=== PATIENT | female | born 1965 | race Caucasian/White ===

== ENCOUNTER 2017-03-03 14:59 | Emergency (ER) | payer OTHER ==
[~2017-03-03] VITALS: Ht 162.5 cm; Wt 127.0 kg
[2017-03-03] MEDS ORDERED: KETOROLAC10 MG PO (15:26)
[2017-03-03 16:02] LABS: BASO % 0.3 % (0.0-1.0); EOS # 0.7 10*3/uL (0.0-0.4); EOS % 6.4 % (1.0-4.0); HEMOGLOBIN 12.9 g/dl (12.0-16.0); LYMPH # 2.4 10*3/uL (1.3-4.4); MEAN CELL VOLUME 91.6 fl (81.0-99.0); MEAN CORPUSCULAR HGB 31.1 pg (27.0-31.0); MEAN CORPUSCULAR HGB CONC 33.9 g/dl (33.0-37.0); MEAN PLATELET VOLUME 8.8 fl (9.6-12.3); MONO # 0.7 10*3/uL (0.1-1.0); MONO % 6.2 % (3.0-9.0); NEUT # 7.4 10*3/uL (2.3-7.9); NEUT % 65.8 % (47.0-73.0); PLATELET COUNT AUTOMATED 331 10*3/uL (130-400); RED BLOOD COUNT 4.15 10*6/uL (4.10-5.10); RED CELL DISTRI WIDTH 13.8 % (0-14.5); WHITE BLOOD COUNT 11.3 10*3/uL (4.8-10.8)
[2017-03-03 16:17] LABS: ALBUMIN 3.4 gm/dl (3.1-4.5); ALKALINE PHOSPHATASE 161 U/L (45-117); BUN 10 mg/dl (7-24); CHLORIDE 102 mmol/L (98-107); CREATININE 0.81 mg/dL (0.55-1.02); POTASSIUM 3.8 mmol/L (3.5-5.1); SGOT/AST 9 IU/L (3-35); SGPT/ALT 22 U/L (12-78); SODIUM 139 mmol/L (136-145); TOTAL PROTEIN 7.3 gm/dL (6.4-8.2)
[2017-03-03] MEDS ORDERED: NORCO 5-325 TA1 EACH PO (16:54)
[2017-03-03] MEDS ORDERED: CLINDAMYCIN HC300 MG PO (16:54)
== END 2017-03-03 16:58 | disposition home or self-care (01) ==
LOC: ED 14:59
PROVIDERS: Physician Assistant
DX: L08.9 Local infection of the skin and subcutaneous tissue, unspecified (principal); R21 Rash and other nonspecific skin eruption; F17.200 Nicotine dependence, unspecified, uncomplicated; Z88.1 Allergy status to other antibiotic agents; Z88.8 Allergy status to other drugs, medicaments and biological substances

== ENCOUNTER 2017-03-13 12:37 | Inpatient (IN) | payer OTHER ==
[~2017-03-13] VITALS: Ht 160 cm; Wt 127.0 kg
[~2017-03-13 12:37] MED LIST: CLINDAMYCIN HC300 MG PO; KETOROLAC10 MG PO; NORCO 5-325 TA1 EACH PO
[2017-03-13 12:45] VITALS: BP 124/76
[2017-03-13 13:32] LABS: BASO # 0.1 10*3/uL (0.0-0.1); BASO % 0.4 % (0.0-1.0); EOS # 0.9 10*3/uL (0.0-0.4); EOS % 6.5 % (1.0-4.0); HEMATOCRIT 46.1 % (37.0-47.0); HEMOGLOBIN 15.6 g/dl (12.0-16.0); LYMPH # 2.3 10*3/uL (1.3-4.4); LYMPH % 15.5 % (27.0-41.0); MEAN CELL VOLUME 92.6 fl (81.0-99.0); MEAN CORPUSCULAR HGB 31.3 pg (27.0-31.0); MEAN CORPUSCULAR HGB CONC 33.8 g/dl (33.0-37.0); MEAN PLATELET VOLUME 8.7 fl (9.6-12.3); NEUT # 10.2 10*3/uL (2.3-7.9); NEUT % 70.3 % (47.0-73.0); PLATELET COUNT AUTOMATED 342 10*3/uL (130-400); RED BLOOD COUNT 4.98 10*6/uL (4.10-5.10); RED CELL DISTRI WIDTH 13.8 % (0-14.5); WHITE BLOOD COUNT 14.6 10*3/uL (4.8-10.8)
[2017-03-13 13:48] LABS: ALBUMIN 3.7 gm/dl (3.1-4.5); ALKALINE PHOSPHATASE 179 U/L (45-117); BUN 10 mg/dl (7-24); CHLORIDE 101 mmol/L (98-107); CREATININE 0.91 mg/dL (0.55-1.02); LIPASE 77 U/L (73-393); POTASSIUM 4.2 mmol/L (3.5-5.1); SGOT/AST 7 IU/L (3-35); SGPT/ALT 17 U/L (12-78); SODIUM 136 mmol/L (136-145)
[2017-03-13 13:49] LABS: TROPONIN I < 0.015 ng/ml (<0.045)
[2017-03-13 13:50] LABS: BILIRUBIN NEGATIVE (NEGATIVE); BLOOD TRACE-INTACT (NEGATIVE); CLARITY CLOUDY (CLEAR); COLOR YELLOW (YELLOW); GLUCOSE NEGATIVE (NEGATIVE); KETONE NEGATIVE (NEGATIVE); LEUKO ESTERASE 2+ (NEGATIVE); NITRITE NEGATIVE (NEGATIVE); PH 6.5 (5.0-9.0); UROBILINOGEN 0.2 E.U./dl (0.2-1.0)
[2017-03-13 14:00] LABS: BACTERIA 2+; RBC 0-2 rbc/hpf (0-2); WBC TNTC wbc/hpf (0-5)
[2017-03-13 14:33] VITALS: BP 135/96
[2017-03-13] MEDS ORDERED: NEXIUM40 MG PO (14:54)
[2017-03-13] MEDS ORDERED: XANAX0.5 MG PO (14:54)
[2017-03-13] MEDS ORDERED: BUMETANIDE0.5 MG PO (14:56)
[2017-03-13] MEDS ORDERED: EFFER-K10 MEQ PO (14:57)
[2017-03-13] MEDS ORDERED: DILANTIN100 MG PO (14:58)
[2017-03-13] MEDS ORDERED: AMITRIPTYLINE50 MG PO (14:59)
[2017-03-13] MEDS ORDERED: ZESTRIL20 MG PO (15:00)
[2017-03-13] MEDS ORDERED: SPIRIVA -- 3018 MCG INH (15:00)
[2017-03-13] MEDS ORDERED: RESTORIL30 M1 PO (15:02)
[2017-03-13] MEDS ORDERED: FIORINAL W/CODE1 TAB PO (15:02)
[2017-03-13] MEDS ORDERED: CYCLOBENZAPRINE10 MG PO (15:05)
[2017-03-13] MEDS ORDERED: AMITIZA24 MCG PO (15:06)
[2017-03-13 16:00] VITALS: BP 136/71
[2017-03-13 20:00] VITALS: BP 114/68
[2017-03-14] VITALS: BP 107/66
[2017-03-14 07:23] LABS: BASO % 0.3 % (0.0-1.0); EOS # 0.1 10*3/uL (0.0-0.4); EOS % 0.7 % (1.0-4.0); HEMATOCRIT 43.1 % (37.0-47.0); HEMOGLOBIN 14.2 g/dl (12.0-16.0); LYMPH # 0.9 10*3/uL (1.3-4.4); LYMPH % 7.6 % (27.0-41.0); MEAN CELL VOLUME 93.5 fl (81.0-99.0); MEAN CORPUSCULAR HGB 30.8 pg (27.0-31.0); MEAN CORPUSCULAR HGB CONC 32.9 g/dl (33.0-37.0); MEAN PLATELET VOLUME 9.1 fl (9.6-12.3); MONO # 0.1 10*3/uL (0.1-1.0); MONO % 1.1 % (3.0-9.0); NEUT % 89.8 % (47.0-73.0); NUCLEATED RED BLOOD CELL 0.2 % (0.0-0.0); PLATELET COUNT AUTOMATED 333 10*3/uL (130-400); RED BLOOD COUNT 4.61 10*6/uL (4.10-5.10); RED CELL DISTRI WIDTH 13.7 % (0-14.5); WHITE BLOOD COUNT 12.3 10*3/uL (4.8-10.8)
[2017-03-14 07:52] LABS: BUN 10 mg/dl (7-24); CHLORIDE 102 mmol/L (98-107); CHOLESTEROL 186 mg/dL (<200); CREATININE 0.91 mg/dL (0.55-1.02); POTASSIUM 4.3 mmol/L (3.5-5.1); SODIUM 136 mmol/L (136-145); TRIGLYCERIDES 103 mg/dl (<150); VLDL CHOLESTEROL 21 mg/dL (6-40)
[2017-03-14 08:00] VITALS: BP 128/77
[2017-03-14 08:03] LABS: FREE T4 0.93 ng/dl (0.76-1.46); HDL CHOLESTEROL 47 mg/dl (40-60); LDL CHOLESTEROL 118 mg/dL (9-159)
[2017-03-14 12:00] VITALS: BP 123/47
[2017-03-14 16:00] VITALS: BP 133/80
[2017-03-14 20:00] VITALS: BP 122/66
[2017-03-15] VITALS: BP 108/91
[2017-03-15 07:17] LABS: BASO # 0.1 10*3/uL (0.0-0.1); BASO % 0.5 % (0.0-1.0); EOS # 0.6 10*3/uL (0.0-0.4); EOS % 5.1 % (1.0-4.0); HEMATOCRIT 39.2 % (37.0-47.0); LYMPH # 2.7 10*3/uL (1.3-4.4); LYMPH % 24.3 % (27.0-41.0); MEAN CELL VOLUME 94.2 fl (81.0-99.0); MEAN CORPUSCULAR HGB 31.3 pg (27.0-31.0); MEAN CORPUSCULAR HGB CONC 33.2 g/dl (33.0-37.0); MEAN PLATELET VOLUME 8.8 fl (9.6-12.3); MONO # 0.9 10*3/uL (0.1-1.0); MONO % 7.7 % (3.0-9.0); NEUT # 6.8 10*3/uL (2.3-7.9); NEUT % 61.9 % (47.0-73.0); PLATELET COUNT AUTOMATED 310 10*3/uL (130-400); RED BLOOD COUNT 4.16 10*6/uL (4.10-5.10); RED CELL DISTRI WIDTH 13.7 % (0-14.5)
[2017-03-15 07:43] LABS: CHLORIDE 102 mmol/L (98-107); POTASSIUM 3.7 mmol/L (3.5-5.1); SODIUM 138 mmol/L (136-145)
[2017-03-15 07:47] LABS: BUN 9 mg/dl (7-24); PHOSPHOROUS 3.7 mg/dL (2.5-4.9)
[2017-03-15 08:00] VITALS: BP 122/72
[2017-03-15] MEDS ORDERED: VITAMIN D-32000 UNIT PO (11:04)
[2017-03-15] MEDS ORDERED: SEPTDS PO (11:04)
[2017-03-15] MEDS ORDERED: NATURE'S BLEND F1 MG PO (11:04)
[2017-03-15] MEDS ORDERED: KEFLEX500 M1 PO (11:04)
[2017-03-15] MEDS ORDERED: PERCOCET 5-3251 EACH PO (11:05)
== END 2017-03-15 12:13 | disposition home or self-care (01) | DRG 872 ==
LOC: ED 12:37 → EDHOLD 14:28 → 4E 14:32
PROVIDERS: Internal Medicine Nephrology; Student in an Organized Health Care Education/Training Program
DX: A41.9 Sepsis, unspecified organism (principal); I11.0 Hypertensive heart disease with heart failure; I50.9 Heart failure, unspecified; E66.01 Morbid (severe) obesity due to excess calories; N39.0 Urinary tract infection, site not specified; Z68.42 Body mass index [BMI] 45.0-49.9, adult; E78.5 Hyperlipidemia, unspecified; J44.9 Chronic obstructive pulmonary disease, unspecified; R82.71 Bacteriuria; D72.810 Lymphocytopenia; N61.0 Mastitis without abscess; F17.200 Nicotine dependence, unspecified, uncomplicated; K58.1 Irritable bowel syndrome with constipation; G40.909 Epilepsy, unspecified, not intractable, without status epilepticus; K21.9 Gastro-esophageal reflux disease without esophagitis; Z90.710 Acquired absence of both cervix and uterus; Z82.49 Family history of ischemic heart disease and other diseases of the circulatory system; Z88.8 Allergy status to other drugs, medicaments and biological substances; Z79.82 Long term (current) use of aspirin; Z79.899 Other long term (current) drug therapy; Z80.8 Family history of malignant neoplasm of other organs or systems; Z71.6 Tobacco abuse counseling

== ENCOUNTER → 2017-04-20 | Outpatient (CLI) | payer OTHER ==
[~2017-04-20] MED LIST changes: +AMITIZA24 MCG PO; +AMITRIPTYLINE50 MG PO; +BUMETANIDE0.5 MG PO; +CYCLOBENZAPRINE10 MG PO; +DILANTIN100 MG PO; +EFFER-K10 MEQ PO; +FIORINAL W/CODE1 TAB PO; +KEFLEX500 M1 PO; +NATURE'S BLEND F1 MG PO; +NEXIUM40 MG PO; +PERCOCET 5-3251 EACH PO; +RESTORIL30 M1 PO; +SEPTDS PO; +SPIRIVA -- 3018 MCG INH; +VITAMIN D-32000 UNIT PO; +XANAX0.5 MG PO; +ZESTRIL20 MG PO
== END | disposition home or self-care (01) ==
LOC: RESCLI 02:11
DX: I11.0 Hypertensive heart disease with heart failure (principal); I50.42 Chronic combined systolic (congestive) and diastolic (congestive) heart failure; J44.9 Chronic obstructive pulmonary disease, unspecified; G89.28 Other chronic postprocedural pain; G47.30 Sleep apnea, unspecified; E66.9 Obesity, unspecified; K21.9 Gastro-esophageal reflux disease without esophagitis; K44.9 Diaphragmatic hernia without obstruction or gangrene; K58.1 Irritable bowel syndrome with constipation; R56.9 Unspecified convulsions; G44.229 Chronic tension-type headache, not intractable; F32.9 Major depressive disorder, single episode, unspecified; F41.9 Anxiety disorder, unspecified; E78.2 Mixed hyperlipidemia

== ENCOUNTER → 2017-04-29 | Outpatient (CLI) | payer OTHER ==
[2017-04-29 10:13] LABS: HEMATOCRIT 38.5 % (37.0-47.0); HEMOGLOBIN 12.8 g/dl (12.0-16.0); MEAN CELL VOLUME 92.5 fl (81.0-99.0); MEAN CORPUSCULAR HGB 30.8 pg (27.0-31.0); MEAN CORPUSCULAR HGB CONC 33.2 g/dl (33.0-37.0); RED BLOOD COUNT 4.16 10*6/uL (4.10-5.10); RED CELL DISTRI WIDTH 13.2 % (0-14.5); WHITE BLOOD COUNT 14.3 10*3/uL (4.8-10.8)
[2017-04-29 10:34] LABS: ALBUMIN 3.7 gm/dl (3.1-4.5); BUN 11 mg/dl (7-24); CHLORIDE 94 mmol/L (98-107); POTASSIUM 4.1 mmol/L (3.5-5.1); SODIUM 131 mmol/L (136-145)
[2017-04-29 10:38] LABS: ALKALINE PHOSPHATASE 151 U/L (45-117); CREATININE 0.99 mg/dL (0.55-1.02); SGOT/AST 8 IU/L (3-35); SGPT/ALT 18 U/L (12-78); TOTAL PROTEIN 7.6 gm/dL (6.4-8.2)
== END | disposition home or self-care (01) ==
LOC: LAB 08:25 → MAMMO 09:00
PROVIDERS: Internal Medicine
DX: R92.8 Other abnormal and inconclusive findings on diagnostic imaging of breast (principal); N39.0 Urinary tract infection, site not specified; G89.28 Other chronic postprocedural pain

== ENCOUNTER → 2017-05-04 | Outpatient (CLI) | payer OTHER | END | disposition home or self-care (01) | LOC: RESCLI 10:45 | DX: J44.9 Chronic obstructive pulmonary disease, unspecified (principal); G47.30 Sleep apnea, unspecified; E66.9 Obesity, unspecified; K21.9 Gastro-esophageal reflux disease without esophagitis; I10 Essential (primary) hypertension; G44.229 Chronic tension-type headache, not intractable; E78.2 Mixed hyperlipidemia; G89.28 Other chronic postprocedural pain ==

== ENCOUNTER → 2017-05-07 | Outpatient (CLI) | payer OTHER | END | disposition home or self-care (01) | LOC: CARD 00:38 | DX: I50.40 Unspecified combined systolic (congestive) and diastolic (congestive) heart failure (principal); G89.28 Other chronic postprocedural pain ==

== ENCOUNTER → 2017-06-02 | Outpatient (CLI) | payer OTHER | END | disposition home or self-care (01) | LOC: RESCLI 01:37 | DX: J44.9 Chronic obstructive pulmonary disease, unspecified (principal); G47.30 Sleep apnea, unspecified; E66.9 Obesity, unspecified; K21.9 Gastro-esophageal reflux disease without esophagitis; R56.9 Unspecified convulsions; G44.229 Chronic tension-type headache, not intractable; F32.9 Major depressive disorder, single episode, unspecified; F41.9 Anxiety disorder, unspecified; I11.0 Hypertensive heart disease with heart failure; I50.42 Chronic combined systolic (congestive) and diastolic (congestive) heart failure; E78.2 Mixed hyperlipidemia; R10.2 Pelvic and perineal pain; G89.29 Other chronic pain ==

== ENCOUNTER → 2017-06-30 | Outpatient (CLI) | payer OTHER | END | disposition home or self-care (01) | LOC: RESCLI 02:05 | DX: J44.9 Chronic obstructive pulmonary disease, unspecified (principal); G47.30 Sleep apnea, unspecified; E66.9 Obesity, unspecified; K21.9 Gastro-esophageal reflux disease without esophagitis; K58.1 Irritable bowel syndrome with constipation; R56.9 Unspecified convulsions; G56.03 Carpal tunnel syndrome, bilateral upper limbs; G89.29 Other chronic pain; E78.2 Mixed hyperlipidemia; I11.0 Hypertensive heart disease with heart failure; I50.42 Chronic combined systolic (congestive) and diastolic (congestive) heart failure; F41.9 Anxiety disorder, unspecified; F32.9 Major depressive disorder, single episode, unspecified ==

== ENCOUNTER 2017-07-28 13:33 | Inpatient (IN) | payer OTHER ==
[~2017-07-28] VITALS: Ht 162.6 cm; Wt 151.1 kg
[2017-07-28] VITALS (7 sets, daily range): BP systolic 108–143; BP diastolic 55–78
[2017-07-28 14:49] LABS: BASO % 0.2 % (0.0-1.0); EOS # 0.6 10*3/uL (0.0-0.4); EOS % 4.4 % (1.0-4.0); HEMATOCRIT 37.1 % (37.0-47.0); HEMOGLOBIN 12.4 g/dl (12.0-16.0); LYMPH # 1.9 10*3/uL (1.3-4.4); LYMPH % 13.6 % (27.0-41.0); MEAN CELL VOLUME 89.8 fl (81.0-99.0); MEAN CORPUSCULAR HGB CONC 33.4 g/dl (33.0-37.0); MEAN PLATELET VOLUME 8.3 fl (9.6-12.3); MONO # 0.8 10*3/uL (0.1-1.0); MONO % 5.8 % (3.0-9.0); NEUT # 10.7 10*3/uL (2.3-7.9); NEUT % 75.6 % (47.0-73.0); PLATELET COUNT AUTOMATED 335 10*3/uL (130-400); RED BLOOD COUNT 4.13 10*6/uL (4.10-5.10); RED CELL DISTRI WIDTH 14.1 % (0-14.5); WHITE BLOOD COUNT 14.2 10*3/uL (4.8-10.8)
[2017-07-28 14:58] LABS: ACT PARTIAL THROMBO TIME 24.2 SECONDS (20.8-31.5)
[2017-07-28 15:04] LABS: ALBUMIN 3.4 gm/dl (3.1-4.5); ALKALINE PHOSPHATASE 177 U/L (45-117); BUN 11 mg/dl (7-24); CHLORIDE 92 mmol/L (98-107); LIPASE 39 U/L (73-393); POTASSIUM 4.2 mmol/L (3.5-5.1); SGOT/AST 12 IU/L (3-35); SGPT/ALT 23 U/L (12-78); SODIUM 127 mmol/L (136-145); TOTAL PROTEIN 7.5 gm/dL (6.4-8.2)
[2017-07-28 15:08] LABS: TROPONIN I < 0.015 ng/ml (<0.045)
[2017-07-28] MEDS ORDERED: ASPIRIN81 M1 PO (15:15)
[2017-07-28] MEDS ORDERED: FLONASE ALLERG9.9 ML NAS (15:16)
[2017-07-28] MEDS ORDERED: PROAIR HFA8.5 GM INH (15:17)
[2017-07-28] MEDS ORDERED: OXYGEN NAS (15:17)
[2017-07-28] MEDS ORDERED: MAGNESIUM500 MG PO (15:18)
[2017-07-28 15:25] LABS: BILIRUBIN NEGATIVE (NEGATIVE); BLOOD TRACE-LYSED (NEGATIVE); CLARITY SL CLOUDY (CLEAR); COLOR YELLOW (YELLOW); GLUCOSE NEGATIVE (NEGATIVE); KETONE NEGATIVE (NEGATIVE); LEUKO ESTERASE 2+ (NEGATIVE); NITRITE POSITIVE (NEGATIVE); PH 5.5 (5.0-9.0); UROBILINOGEN 0.2 E.U./dl (0.2-1.0)
[2017-07-28 15:41] LABS: BACTERIA 4+
[2017-07-28 15:42] LABS: EPITHELIAL CELLS 21-30
[2017-07-28 15:43] LABS: WBC 51-100 wbc/hpf (0-5)
[2017-07-28] MEDS ORDERED: QVAR8.7 G1 INH (18:17)
[2017-07-28] MEDS ORDERED: COMPAZINE R (18:18)
[2017-07-29] VITALS: BP 124/75
[2017-07-29 06:32] LABS: BASO % 0.1 % (0.0-1.0); EOS # 0.2 10*3/uL (0.0-0.4); EOS % 1.5 % (1.0-4.0); HEMATOCRIT 36.5 % (37.0-47.0); HEMOGLOBIN 11.5 g/dl (12.0-16.0); LYMPH # 1.1 10*3/uL (1.3-4.4); LYMPH % 8.5 % (27.0-41.0); MEAN CELL VOLUME 91.9 fl (81.0-99.0); MEAN CORPUSCULAR HGB CONC 31.5 g/dl (33.0-37.0); MEAN PLATELET VOLUME 8.6 fl (9.6-12.3); MONO # 0.5 10*3/uL (0.1-1.0); MONO % 3.4 % (3.0-9.0); NEUT # 11.5 10*3/uL (2.3-7.9); NEUT % 85.8 % (47.0-73.0); PLATELET COUNT AUTOMATED 334 10*3/uL (130-400); RED BLOOD COUNT 3.97 10*6/uL (4.10-5.10); WHITE BLOOD COUNT 13.4 10*3/uL (4.8-10.8)
[2017-07-29 06:50] LABS: BUN 10 mg/dl (7-24); CHLORIDE 94 mmol/L (98-107); CHOLESTEROL 186 mg/dL (<200); CREATININE 0.89 mg/dL (0.55-1.02); HDL CHOLESTEROL 51 mg/dl (40-60); LDL CHOLESTEROL 120 mg/dL (9-159); POTASSIUM 4.5 mmol/L (3.5-5.1); SODIUM 130 mmol/L (136-145); TRIGLYCERIDES 73 mg/dl (<150); VLDL CHOLESTEROL 15 mg/dL (6-40)
[2017-07-29 07:42] LABS: VITAMIN D, 25-HYDROXY 18.4 ng/mL (30-100)
[2017-07-29 08:00] VITALS: BP 127/82
[2017-07-29 12:00] VITALS: BP 124/78
[2017-07-29 16:00] VITALS: BP 106/69
[2017-07-29 20:00] VITALS: BP 139/45
[2017-07-29] MEDS ORDERED: POTASSIUM CHLO10 ME5 PO (23:09)
[2017-07-29] MEDS ORDERED: BUMETANIDE0.5 MG PO (23:13)
[2017-07-29] MEDS ORDERED: ESGIC 325 MG-5050 MG PO (23:16)
[2017-07-30] VITALS: BP 107/49
[2017-07-30 06:14] LABS: BASO % 0.2 % (0.0-1.0); EOS # 0.1 10*3/uL (0.0-0.4); EOS % 0.9 % (1.0-4.0); HEMATOCRIT 40.2 % (37.0-47.0); HEMOGLOBIN 12.3 g/dl (12.0-16.0); LYMPH # 1.9 10*3/uL (1.3-4.4); LYMPH % 12.8 % (27.0-41.0); MEAN CORPUSCULAR HGB 29.1 pg (27.0-31.0); MEAN CORPUSCULAR HGB CONC 30.6 g/dl (33.0-37.0); MEAN PLATELET VOLUME 8.7 fl (9.6-12.3); MONO # 0.9 10*3/uL (0.1-1.0); MONO % 5.9 % (3.0-9.0); NEUT # 11.8 10*3/uL (2.3-7.9); NEUT % 79.5 % (47.0-73.0); PLATELET COUNT AUTOMATED 336 10*3/uL (130-400); RED BLOOD COUNT 4.23 10*6/uL (4.10-5.10); RED CELL DISTRI WIDTH 14.4 % (0-14.5); WHITE BLOOD COUNT 14.9 10*3/uL (4.8-10.8)
[2017-07-30 06:34] LABS: ALBUMIN 3.4 gm/dl (3.1-4.5); ALKALINE PHOSPHATASE 155 U/L (45-117); BUN 10 mg/dl (7-24); CHLORIDE 101 mmol/L (98-107); CREATININE 0.75 mg/dL (0.55-1.02); PHOSPHOROUS 3.1 mg/dL (2.5-4.9); POTASSIUM 4.4 mmol/L (3.5-5.1); SGOT/AST 10 IU/L (3-35); SGPT/ALT 20 U/L (12-78); SODIUM 137 mmol/L (136-145); TOTAL PROTEIN 7.4 gm/dL (6.4-8.2)
[2017-07-30 08:00] VITALS: BP 116/72
[2017-07-30 12:00] VITALS: BP 106/50
[2017-07-30] MEDS ORDERED: PREDNISONE10 MG PO (14:17)
[2017-07-30] MEDS ORDERED: LEVAQUIN750 M1 PO (14:17)
== END 2017-07-30 15:11 | disposition home or self-care (01) | DRG 871 ==
LOC: ED 13:33 → EDHOLD 16:56 → 4E 16:56
PROVIDERS: Internal Medicine; Nurse Practitioner Family
DX: A41.9 Sepsis, unspecified organism (principal); J18.9 Pneumonia, unspecified organism; E44.0 Moderate protein-calorie malnutrition; I11.0 Hypertensive heart disease with heart failure; E66.01 Morbid (severe) obesity due to excess calories; E87.8 Other disorders of electrolyte and fluid balance, not elsewhere classified; I50.9 Heart failure, unspecified; J44.1 Chronic obstructive pulmonary disease with (acute) exacerbation; E87.1 Hypo-osmolality and hyponatremia; N30.00 Acute cystitis without hematuria; Z68.43 Body mass index [BMI] 50.0-59.9, adult; E78.2 Mixed hyperlipidemia; B96.20 Unspecified Escherichia coli [E. coli] as the cause of diseases classified elsewhere; L73.2 Hidradenitis suppurativa; K21.9 Gastro-esophageal reflux disease without esophagitis; F17.200 Nicotine dependence, unspecified, uncomplicated; K58.9 Irritable bowel syndrome, unspecified; G40.909 Epilepsy, unspecified, not intractable, without status epilepticus; Z88.1 Allergy status to other antibiotic agents; Z88.0 Allergy status to penicillin; Z88.8 Allergy status to other drugs, medicaments and biological substances; Z79.82 Long term (current) use of aspirin; Z71.6 Tobacco abuse counseling; Z79.899 Other long term (current) drug therapy; Z87.440 Personal history of urinary (tract) infections; Z90.710 Acquired absence of both cervix and uterus; Z82.49 Family history of ischemic heart disease and other diseases of the circulatory system; Z80.6 Family history of leukemia

== ENCOUNTER → 2017-08-18 | Outpatient (CLI) | payer OTHER ==
[~2017-08-18] MED LIST changes: +ASPIRIN81 M1 PO; +COMPAZINE R; +ESGIC 325 MG-5050 MG PO; +FLONASE ALLERG9.9 ML NAS; +LEVAQUIN750 M1 PO; +MAGNESIUM500 MG PO; +OXYGEN NAS; +POTASSIUM CHLO10 ME5 PO; +PREDNISONE10 MG PO; +PROAIR HFA8.5 GM INH; +QVAR8.7 G1 INH; +REGLAN5 MG PO
== END | disposition home or self-care (01) ==
LOC: RESCLI 03:17
DX: I11.0 Hypertensive heart disease with heart failure (principal); I50.42 Chronic combined systolic (congestive) and diastolic (congestive) heart failure; J44.9 Chronic obstructive pulmonary disease, unspecified; G47.30 Sleep apnea, unspecified; K21.9 Gastro-esophageal reflux disease without esophagitis; R56.9 Unspecified convulsions; F32.9 Major depressive disorder, single episode, unspecified; E78.2 Mixed hyperlipidemia; G89.29 Other chronic pain; K58.1 Irritable bowel syndrome with constipation; F17.210 Nicotine dependence, cigarettes, uncomplicated; R11.0 Nausea; Z79.899 Other long term (current) drug therapy; Z90.49 Acquired absence of other specified parts of digestive tract; Z88.8 Allergy status to other drugs, medicaments and biological substances

== ENCOUNTER → 2017-09-23 | Day surgery (SDC) | payer OTHER ==
[~2017-09-23] VITALS: Ht 162.5 cm; Wt 136.1 kg
--- NOTE | ~2017-09-23 | O ---
[place], [place] OPERATIVE NOTE NAME: MELECIO QUESADA UNIT #: [id number] ROOM: DOCTOR: RENE FITZPATRICK,STEPHY BIRTHDATE: [birth year] DOS: 09/23/2017 GASTROENDOSCOPIC REPORT HISTORY OF PRESENT ILLNESS: This is a 52-year-old patient who has presented with chief complaint of gastroesophageal dyspepsia on Nexium 40 mg b.i.d., reflux symptoms ____ symptomatology of GI, change in bowel habit, diarrhea, constipation, dominant CT scan of the abdomen and pelvis, multiple gallstones, otherwise question of abnormal LFTs, has been n.p.o. in presence of gallstones and bibasilar atelectasis of the lung, advanced COPD, active smoker, however. ALLERGIES: CECLOR, PENICILLIN, NEURONTIN, DEPAKOTE. PAST MEDICAL HISTORY: Seizure disorder, COPD, congestive heart failure, morbid obesity, oxygen dependency. FAMILY HISTORY: Noncontributory. PAST SURGICAL HISTORY: Hysterectomy, multi abdominal and pelvic surgeries, bladder sling, lower back surgery. SOCIAL HISTORY: Active smoker, nonalcohol consumer. PROCEDURE: Today's procedure part of investigation is panendoscopy plus colonoscopy. PREMEDICATION: Propofol. SCOPE: Olympus forward-viewing gastroscope Q10 video. REPORT: After putting the patient in left lateral position and application of lubricant to the scope, the scope was introduced. Thereafter, under direct visualization, advanced through the length of esophagus without difficulty. Gastric pouch was entered. Evidence of thick bowel by retained tablets in the stomach was noticed. Antral biopsy obtained. Duodenal bulb, second and third part within normal limit. The patient was gradually extubated, tolerated the procedure well. IMPRESSION: Bile reflux gastritis, multiple retained tablets. PLAN AND DISCUSSION: I have to start this patient on Reglan 5 mg before dinners and antireflux measures and continuation of the same medications until we reassess the patient again. The patient has presented with a chief complaint of diarrhea, change in bowel habit, and constipation, undergoing investigation. PROCEDURE: Today's procedure part of investigation is colonoscopy plus snare [place], [place] OPERATIVE NOTE NAME: MELECIO QUESADA UNIT #: [id number] ROOM: DOCTOR: [facility] [birth year] polypectomy of a rectal pouch polyp. PREMEDICATION: Propofol. SCOPE: Olympus forward-viewing colonoscope 10L video. REPORT: After putting the patient in left lateral position and application of lubricant to the scope, the scope was introduced. Thereafter, under direct visualization, advanced through the length of colon without difficulty. Retained stool throughout the length of colon was identified. Visualization was very limited; however, diverticulosis was noticed and a sessile polypoid lesion in rectal pouch identified, snare polypectomized. We could not be explore the base of cecum at all. Photographic series obtained from retained large volume of liquid stool. The patient extubated, tolerated the procedure well. IMPRESSION: Retained stool, rectal pouch polyp, diverticulosis, poor visualization due to retention of stool, and nonvisualization of hepatic and transverse colon partially. PLAN AND DISCUSSION: I will discuss with the patient to see if she would be amenable to re-prepping and re-colonoscopy; otherwise, conservative management. The patient was advised to abstain from smoking in view of the extreme shortness of breath and compromised breathing. However, I doubt she is going to be compliant. I am going to offer her a barium enema. I doubt if she is going to be compliant; however, workup in progress as outpatient. STEPHY LÓPEZ MD CM:OPRECORD:OPERATIVE NOTE [id number] STEPHY LÓPEZ MD 09/23/17 1338 interface
[2017-09-23 08:35] VITALS: BP 113/61
[2017-09-23 09:41] VITALS: BP 127/64
[2017-09-23 09:56] VITALS: BP 161/90
[2017-09-23 10:11] VITALS: BP 138/83
== END | disposition home or self-care (01) ==
LOC: SDC 09-18 09:30
DX: K62.1 Rectal polyp (principal); K58.1 Irritable bowel syndrome with constipation; K57.30 Diverticulosis of large intestine without perforation or abscess without bleeding; K29.50 Unspecified chronic gastritis without bleeding; K21.9 Gastro-esophageal reflux disease without esophagitis; J44.9 Chronic obstructive pulmonary disease, unspecified; I50.9 Heart failure, unspecified; G40.909 Epilepsy, unspecified, not intractable, without status epilepticus; G47.30 Sleep apnea, unspecified; G89.29 Other chronic pain; F17.210 Nicotine dependence, cigarettes, uncomplicated; M19.90 Unspecified osteoarthritis, unspecified site; E66.01 Morbid (severe) obesity due to excess calories; Z68.43 Body mass index [BMI] 50.0-59.9, adult; Z88.1 Allergy status to other antibiotic agents; Z88.0 Allergy status to penicillin; Z88.8 Allergy status to other drugs, medicaments and biological substances; Z90.710 Acquired absence of both cervix and uterus

== ENCOUNTER → 2017-10-30 | Outpatient (CLI) | payer OTHER ==
[~2017-10-30] MED LIST changes: +ALDACTONE25 M1 PO; +CIPRO500 MG PO; +FLAGYL500 MG PO; +MIRALAX POWDER255 G1 PO; +VALIUM10 MG V
== END | disposition home or self-care (01) ==
LOC: RESCLI 02:56
DX: Z09 Encounter for follow-up examination after completed treatment for conditions other than malignant neoplasm (principal); I11.0 Hypertensive heart disease with heart failure; I50.42 Chronic combined systolic (congestive) and diastolic (congestive) heart failure; G89.29 Other chronic pain; E78.2 Mixed hyperlipidemia; K21.9 Gastro-esophageal reflux disease without esophagitis; J44.9 Chronic obstructive pulmonary disease, unspecified; G47.30 Sleep apnea, unspecified; F32.9 Major depressive disorder, single episode, unspecified; E66.9 Obesity, unspecified; R56.9 Unspecified convulsions; E78.5 Hyperlipidemia, unspecified; F17.200 Nicotine dependence, unspecified, uncomplicated; K58.1 Irritable bowel syndrome with constipation; F41.9 Anxiety disorder, unspecified; Z91.89 Other specified personal risk factors, not elsewhere classified; Z79.899 Other long term (current) drug therapy; Z79.82 Long term (current) use of aspirin; Z88.8 Allergy status to other drugs, medicaments and biological substances

== ENCOUNTER 2017-12-01 14:47 | Inpatient (IN) | payer OTHER ==
[~2017-12-01] VITALS: Ht 162.6 cm; Wt 148.4 kg
--- NOTE | ~2017-12-01 | EKG ---
[place], [place] ELECTROCARDIOGRAM REPORT NAME: MELECIO QUESADA UNIT #: [id number] ROOM: [facility] DOCTOR: CURT DRAFT REPORT BIRTHDATE: [birth year] [facility] Test Date: 2017-12-01 Test Time: 16:52:34 Pat Name: MELECIO QUESADA Department: Room: [facility] Gender: F [facility] Specialist: Sera Waterman : 1965 Requested By: NATALIYA LOPES Order Number: [id number] Reading MD: Jake Castillo MD Measurements Intervals [place] Rate: 100 P: -12 MS: 131 QRS: 90 QRSD: 94 T: 64 QT: 366 QTc: 473 Interpretive Statements Sinus tachycardia Borderline right axis deviation Low voltage, precordial leads Baseline wander in lead(s) V1 Electronically Signed On 12-07-2017 13:43:50 PDT by Jake Castillo MD CM:EKGRPT:ELECTROCARDIOGRAM REPORT [id number] NATALIYA ELIAS DRAFT REPORT NATALIYA LOPES MD
--- NOTE | ~2017-12-01 | CON ---
[place], [place] REPORT OF CONSULTATION NAME: [facility]IO [facility]UESADA [id number] UNIT #: [id number] ROOM: 502 DOCTOR: RENE FITZPATRICKJASMINEGODWIN BIRTHDATE: [birth year] DOS: 12/02/2017 GASTROENDOSCOPIC REPORT HISTORY OF PRESENT ILLNESS: A 52-year-old patient who presented with chief complaint of chronic abdominal pain for past 10 years. The patient has had a colonoscopy attempt approximately 6 weeks ago, apparently colon has been all non-visualized secondary to retained stool and she has presented with leukocytosis of 15,000. She has been placed on Levaquin and Flagyl. Her white blood cell has dropped to 11.8 and still leukocytosis. Lactic acid been 1.8. INR 1.0. Comprehensive metabolic panel, GFR greater than 60. Her troponin normal. Lipase normal. Alkaline phosphatase slightly elevated. CT scan of the abdomen shows left-sided colitis, nonspecific inflammatory process. Troponin remains normal. Urine cultures 50,000 bacteria. PAST MEDICAL HISTORY: Morbid obesity, COPD, active smoker, congestive heart failure, history of diverticulitis, hiatal hernia, gastroesophageal reflux, oxygen dependency at home, cholelithiasis. PAST SURGICAL HISTORY: Bladder repair, hysterectomy, lower back surgery. SOCIAL HISTORY: Active smoker despite being on nasal O2 at home and here. FAMILY HISTORY: Noncontributory. ALLERGIES: PIPERACILLIN, MEROPENEM, TAZOBACTAM, CEFACLOR, DEPAKOTE, AND GABAPENTIN. MEDICATIONS: At home reviewed that is including esomeprazole. REVIEW OF SYSTEMS: HEENT: Denies double vision, blurred vision. RESPIRATORY: Admits to shortness of breath. CARDIOVASCULAR: Denies chest pain. DIGESTIVE SYSTEM: History of hiatal hernia, gastritis, GERD, on PPI. No hematemesis, no hematochezia, history of chronic constipation for years. The patient is on Amitiza 24 mcg b.i.d. in addition to MiraLax 17 g every day. Still this is not working for her. PHYSICAL EXAMINATION: GENITOURINARY: Morbidly obese patient, nontoxic on nasal O2. HEENT: Benign. NECK: Supple, no thyromegaly, no cervical lymphadenopathy. CHEST: Symmetric anatomy, decreased air entry bilaterally. No wheeze. HEART: Normal sinus rhythm, no gallop, no murmur. ABDOMEN: Morbidly obese. When I distract her, she has no pain. No rebound tenderness. Bowel sounds present. Intraabdominal organs cannot be palpated due to morbid obesity. No pulsatile mass. EXTREMITIES: No cyanosis, no pedal edema. NEUROLOGIC: Alert, oriented to time, place, person. Sensory, motor intact. [place], [place] REPORT OF CONSULTATION NAME: MELECIO QUESADA UNIT #: [id number] ROOM: [facility] DOCTOR: STEPHY LÓPEZ MD BIRTHDATE: [birth year] Cranial nerves 2-12 intact. She is sitting up and conversing. IMPRESSION: Segmental colitis, left colon, i.e., ruling out reactive secondary to subclinical diverticulitis, which is not demonstrated on CT scan versus suspected early ischemic colitis; however, her lactic acid normal. Other adjunctive diagnoses are chronic idiopathic constipation, abdominal pain for 10 years. Other adjunctive diagnoses as outlined in past surgical, medical history. PLAN AND DISCUSSION: We are going to keep her on 2 days of aggressive colonic prep, full prep today, full prep tomorrow and hoping to see if she is going to have bowel movements or otherwise she is telling me that her Amitiza is not helping her, maybe we will obligate it switch to Linzess, and workup in progress at the present time. Her COPD, oxygen dependency is being managed. STEPHY LÓPEZ MD CM:CONSTR:REPORT OF CONSULTATION 203 12/03/17 0306 interface
[~2017-12-01 14:47] MED LIST changes: -ALDACTONE25 M1 PO; -MIRALAX POWDER255 G1 PO
[2017-12-01 14:48] VITALS: BP 179/107
[2017-12-01 16:23] LABS: BILIRUBIN NEGATIVE (NEGATIVE); BLOOD NEGATIVE (NEGATIVE); CLARITY SL CLOUDY (CLEAR); COLOR YELLOW (YELLOW); GLUCOSE NEGATIVE (NEGATIVE); KETONE NEGATIVE (NEGATIVE); LEUKO ESTERASE 2+ (NEGATIVE); NITRITE NEGATIVE (NEGATIVE); PH 8.5 (5.0-9.0); UROBILINOGEN 0.2 E.U./dl (0.2-1.0)
[2017-12-01 16:38] LABS: BACTERIA 3+; EPITHELIAL CELLS 31-40
[2017-12-01 16:39] LABS: WBC 51-100 wbc/hpf (0-5)
[2017-12-01 16:41] LABS: BASO % 0.3 % (0.0-1.0); EOS # 0.6 10*3/uL (0.0-0.4); EOS % 3.7 % (1.0-4.0); HEMATOCRIT 39.8 % (37.0-47.0); HEMOGLOBIN 12.9 g/dl (12.0-16.0); LYMPH # 1.5 10*3/uL (1.3-4.4); LYMPH % 9.7 % (27.0-41.0); MEAN CELL VOLUME 89.6 fl (81.0-99.0); MEAN CORPUSCULAR HGB 29.1 pg (27.0-31.0); MEAN CORPUSCULAR HGB CONC 32.4 g/dl (33.0-37.0); MEAN PLATELET VOLUME 8.3 fl (9.6-12.3); MONO # 0.9 10*3/uL (0.1-1.0); MONO % 5.7 % (3.0-9.0); NEUT # 12.3 10*3/uL (2.3-7.9); NEUT % 80.3 % (47.0-73.0); PLATELET COUNT AUTOMATED 361 10*3/uL (130-400); RED BLOOD COUNT 4.44 10*6/uL (4.10-5.10); RED CELL DISTRI WIDTH 15.1 % (0-14.5); WHITE BLOOD COUNT 15.3 10*3/uL (4.8-10.8)
[2017-12-01 16:50] LABS: ACT PARTIAL THROMBO TIME 23.1 SECONDS (20.8-31.5)
[2017-12-01 16:59] LABS: ALBUMIN 3.4 gm/dl (3.1-4.5); ALKALINE PHOSPHATASE 174 U/L (45-117); BUN 6 mg/dl (7-24); CHLORIDE 98 mmol/L (98-107); CREATININE 0.81 mg/dL (0.55-1.02); LIPASE 66 U/L (73-393); POTASSIUM 3.8 mmol/L (3.5-5.1); SGOT/AST 7 IU/L (3-35); SGPT/ALT 18 U/L (12-78); SODIUM 138 mmol/L (136-145); TOTAL PROTEIN 7.5 gm/dL (6.4-8.2)
[2017-12-01 17:03] LABS: TROPONIN I < 0.015 ng/ml (<0.045)
[2017-12-01 18:10] VITALS: BP 149/82
[2017-12-01] MEDS ORDERED: ALDACTONE25 M1 PO (18:41)
[2017-12-01 20:00] VITALS: BP 138/90
[2017-12-01 20:21] VITALS: BP 130/82
[2017-12-02] VITALS: BP 136/84
[2017-12-02 06:09] LABS: BASO % 0.2 % (0.0-1.0); EOS # 0.6 10*3/uL (0.0-0.4); EOS % 4.8 % (1.0-4.0); HEMOGLOBIN 11.7 g/dl (12.0-16.0); LYMPH # 1.2 10*3/uL (1.3-4.4); LYMPH % 9.9 % (27.0-41.0); MEAN CELL VOLUME 88.7 fl (81.0-99.0); MEAN CORPUSCULAR HGB 28.8 pg (27.0-31.0); MEAN CORPUSCULAR HGB CONC 32.5 g/dl (33.0-37.0); MEAN PLATELET VOLUME 8.7 fl (9.6-12.3); MONO # 0.9 10*3/uL (0.1-1.0); MONO % 7.2 % (3.0-9.0); NEUT # 9.1 10*3/uL (2.3-7.9); NEUT % 77.5 % (47.0-73.0); PLATELET COUNT AUTOMATED 326 10*3/uL (130-400); RED BLOOD COUNT 4.06 10*6/uL (4.10-5.10); RED CELL DISTRI WIDTH 14.9 % (0-14.5); WHITE BLOOD COUNT 11.8 10*3/uL (4.8-10.8)
[2017-12-02 06:30] LABS: ALKALINE PHOSPHATASE 162 U/L (45-117); BUN 5 mg/dl (7-24); CHLORIDE 98 mmol/L (98-107); CHOLESTEROL 152 mg/dL (<200); CREATININE 0.75 mg/dL (0.55-1.02); HDL CHOLESTEROL 48 mg/dl (40-60); LDL CHOLESTEROL 84 mg/dL (9-159); PHOSPHOROUS 3.3 mg/dL (2.5-4.9); POTASSIUM 3.6 mmol/L (3.5-5.1); SGOT/AST 8 IU/L (3-35); SGPT/ALT 15 U/L (12-78); SODIUM 135 mmol/L (136-145); TOTAL PROTEIN 6.8 gm/dL (6.4-8.2); TRIGLYCERIDES 98 mg/dl (<150); VLDL CHOLESTEROL 20 mg/dL (6-40)
[2017-12-02 08:00] VITALS: BP 140/86
[2017-12-02] MEDS ORDERED: MIRALAX POWDER255 G1 PO (09:09)
[2017-12-02 12:00] VITALS: BP 132/86
[2017-12-02 16:00] VITALS: BP 140/97
[2017-12-02 20:00] VITALS: BP 144/79
[2017-12-03] VITALS: BP 127/68
[2017-12-03 06:21] LABS: BASO % 0.3 % (0.0-1.0); EOS # 0.6 10*3/uL (0.0-0.4); EOS % 6.3 % (1.0-4.0); HEMATOCRIT 36.2 % (37.0-47.0); HEMOGLOBIN 11.7 g/dl (12.0-16.0); LYMPH % 10.8 % (27.0-41.0); MEAN CELL VOLUME 88.9 fl (81.0-99.0); MEAN CORPUSCULAR HGB 28.7 pg (27.0-31.0); MEAN CORPUSCULAR HGB CONC 32.3 g/dl (33.0-37.0); MEAN PLATELET VOLUME 8.7 fl (9.6-12.3); MONO # 0.8 10*3/uL (0.1-1.0); NEUT % 74.3 % (47.0-73.0); PLATELET COUNT AUTOMATED 330 10*3/uL (130-400); RED BLOOD COUNT 4.07 10*6/uL (4.10-5.10); WHITE BLOOD COUNT 9.4 10*3/uL (4.8-10.8)
[2017-12-03 06:43] LABS: ALBUMIN 3.1 gm/dl (3.1-4.5); BUN 3 mg/dl (7-24); CHLORIDE 102 mmol/L (98-107); POTASSIUM 3.7 mmol/L (3.5-5.1); SODIUM 139 mmol/L (136-145)
[2017-12-03 06:55] LABS: ALKALINE PHOSPHATASE 144 U/L (45-117); CREATININE 0.73 mg/dL (0.55-1.02); PHENYTOIN (DILANTIN) 2.5 ug/ml (10-20); SGOT/AST 7 IU/L (3-35); SGPT/ALT 15 U/L (12-78)
[2017-12-03 08:00] VITALS: BP 132/70
[2017-12-03] MEDS ORDERED: MIRALAX POWDER255 G1 PO (12:16)
[2017-12-03] MEDS ORDERED: FLAGYL500 MG PO (12:16)
== END 2017-12-03 13:03 | disposition home or self-care (01) | DRG 871 ==
LOC: ED 14:47 → 5E 17:41 → EDHOLD 17:41 → 5E 17:54
PROVIDERS: Emergency Medicine; Student in an Organized Health Care Education/Training Program
DX: A41.9 Sepsis, unspecified organism (principal); E43 Unspecified severe protein-calorie malnutrition; E87.1 Hypo-osmolality and hyponatremia; Z68.43 Body mass index [BMI] 50.0-59.9, adult; I50.9 Heart failure, unspecified; J44.9 Chronic obstructive pulmonary disease, unspecified; R00.0 Tachycardia, unspecified; D72.829 Elevated white blood cell count, unspecified; R73.9 Hyperglycemia, unspecified; I10 Essential (primary) hypertension; F17.200 Nicotine dependence, unspecified, uncomplicated; E78.5 Hyperlipidemia, unspecified; K59.04 Chronic idiopathic constipation; K58.1 Irritable bowel syndrome with constipation; K21.9 Gastro-esophageal reflux disease without esophagitis; E66.01 Morbid (severe) obesity due to excess calories; Z90.710 Acquired absence of both cervix and uterus; Z88.1 Allergy status to other antibiotic agents; Z88.8 Allergy status to other drugs, medicaments and biological substances; Z80.9 Family history of malignant neoplasm, unspecified; Z82.49 Family history of ischemic heart disease and other diseases of the circulatory system; Z79.51 Long term (current) use of inhaled steroids; Z79.82 Long term (current) use of aspirin; Z79.1 Long term (current) use of non-steroidal anti-inflammatories (NSAID); Z79.899 Other long term (current) drug therapy; Z87.442 Personal history of urinary calculi

== ENCOUNTER → 2018-02-10 | Outpatient (CLI) | payer OTHER ==
[~2018-02-10] MED LIST changes: +ALDACTONE25 M1 PO; +MIRALAX POWDER255 G1 PO
== END | disposition home or self-care (01) ==
LOC: RESCLI 02:30
DX: I11.0 Hypertensive heart disease with heart failure (principal); I50.42 Chronic combined systolic (congestive) and diastolic (congestive) heart failure; K58.1 Irritable bowel syndrome with constipation; G89.29 Other chronic pain; J44.9 Chronic obstructive pulmonary disease, unspecified; R11.0 Nausea; K21.9 Gastro-esophageal reflux disease without esophagitis; K59.01 Slow transit constipation; G47.30 Sleep apnea, unspecified; R56.9 Unspecified convulsions; R10.2 Pelvic and perineal pain; R73.03 Prediabetes; M25.561 Pain in right knee; E66.01 Morbid (severe) obesity due to excess calories; J30.89 Other allergic rhinitis; E78.5 Hyperlipidemia, unspecified; F17.210 Nicotine dependence, cigarettes, uncomplicated; Z79.899 Other long term (current) drug therapy; Z79.82 Long term (current) use of aspirin; Z90.710 Acquired absence of both cervix and uterus; Z88.8 Allergy status to other drugs, medicaments and biological substances

== ENCOUNTER → 2018-03-17 | Outpatient (CLI) | payer OTHER | END | disposition home or self-care (01) | LOC: RESCLI 02:52 | DX: K21.9 Gastro-esophageal reflux disease without esophagitis (principal); I11.0 Hypertensive heart disease with heart failure; I50.42 Chronic combined systolic (congestive) and diastolic (congestive) heart failure; R11.0 Nausea; R56.9 Unspecified convulsions; K58.1 Irritable bowel syndrome with constipation; J44.9 Chronic obstructive pulmonary disease, unspecified; R73.03 Prediabetes; G89.29 Other chronic pain; R10.2 Pelvic and perineal pain; J30.89 Other allergic rhinitis; K59.01 Slow transit constipation; E66.01 Morbid (severe) obesity due to excess calories; G43.009 Migraine without aura, not intractable, without status migrainosus; E53.8 Deficiency of other specified B group vitamins; F17.200 Nicotine dependence, unspecified, uncomplicated; Z79.899 Other long term (current) drug therapy; Z79.82 Long term (current) use of aspirin; Z79.84 Long term (current) use of oral hypoglycemic drugs; Z90.710 Acquired absence of both cervix and uterus; Z88.1 Allergy status to other antibiotic agents ==

== ENCOUNTER → 2018-05-26 | Outpatient (CLI) | payer OTHER | END | disposition home or self-care (01) | LOC: RESCLI 02:40 | DX: I11.0 Hypertensive heart disease with heart failure (principal); I50.42 Chronic combined systolic (congestive) and diastolic (congestive) heart failure; R11.0 Nausea; K21.9 Gastro-esophageal reflux disease without esophagitis; R56.9 Unspecified convulsions; K58.1 Irritable bowel syndrome with constipation; J44.9 Chronic obstructive pulmonary disease, unspecified; R10.2 Pelvic and perineal pain; J30.89 Other allergic rhinitis; K59.01 Slow transit constipation; G43.009 Migraine without aura, not intractable, without status migrainosus; E53.8 Deficiency of other specified B group vitamins; G89.29 Other chronic pain; E66.01 Morbid (severe) obesity due to excess calories; G89.28 Other chronic postprocedural pain; F17.200 Nicotine dependence, unspecified, uncomplicated; E78.5 Hyperlipidemia, unspecified; Z79.899 Other long term (current) drug therapy; Z79.82 Long term (current) use of aspirin; Z90.710 Acquired absence of both cervix and uterus; Z88.8 Allergy status to other drugs, medicaments and biological substances ==

== ENCOUNTER 2023-08-21 12:15 | Emergency (ER) | payer OTHER ==
[2023-08-21] MEDS ORDERED: NAPROSYN500 MG PO (15:30)
[2023-08-21] MEDS ORDERED: Ketorolac Tromethamine 15 MG/ML VIAL IM ONE (15:30)
== END 2023-08-21 16:00 | disposition home or self-care (01) ==
LOC: ED 12:15
DX: M25.561 Pain in right knee (principal); I10 Essential (primary) hypertension; J44.9 Chronic obstructive pulmonary disease, unspecified; F41.9 Anxiety disorder, unspecified; K21.9 Gastro-esophageal reflux disease without esophagitis; Z88.8 Allergy status to other drugs, medicaments and biological substances; Z90.710 Acquired absence of both cervix and uterus; Z98.890 Other specified postprocedural states; F17.200 Nicotine dependence, unspecified, uncomplicated

== ENCOUNTER 2024-02-13 09:27 | Emergency (ER) | payer OTHER ==
[~2024-02-13] VITALS: Ht 162.5 cm; Wt 81.6 kg
[~2024-02-13 09:27] MED LIST changes: +DALVANCE500 MG IV; +DIAZEPAM5 MG PO; +FLUTICASONE P10.6 G1 INH; +LEVOFLOXACIN750 M2 PO; +METRONIDAZOLE500 M1 PO; +MICAFUNGIN100 MG IV; +MIRALAX POWDER17 G1 PO; +MYRBETRIQ50 M1 PO; +NAPROSYN500 MG PO; +OXYCODONE-ACET1 EAC3 PO; +PAROXETINE40 MG PO; +TOLTERODINE TART2 M3 PO; +VENT7GM INH; +VISTARIL25 MG PO
[2024-02-13] MEDS ORDERED: MORPHINE Sulfate 2 MG/ML SYR IV ONE (09:50)
[2024-02-13] MEDS ORDERED: Ondansetron Hydrochloride 4 MG/2 ML VIAL IV ONE (09:50)
[2024-02-13] MEDS ORDERED: SODIUM CHLORIDE 0.9% 1,000 ML IV ONE (09:50)
[2024-02-13 10:14] LABS: BASO # 0.1 10*3/uL (0.0-0.1); BASO % 0.8 % (0.0-1.0); EOS # 0.5 10*3/uL (0.0-0.4); EOS % 7.1 % (1.0-4.0); HEMATOCRIT 37.6 % (37.0-47.0); MEAN CELL VOLUME 84.7 fl (81.0-99.0); MEAN CORPUSCULAR HGB 27.5 pg (27.0-31.0); MEAN CORPUSCULAR HGB CONC 32.4 g/dl (33.0-37.0); MEAN PLATELET VOLUME 7.8 fl (9.6-12.3); MONO # 0.6 10*3/uL (0.1-1.0); MONO % 8.4 % (3.0-9.0); NEUT # 4.9 10*3/uL (2.3-7.9); NEUT % 63.8 % (47.0-73.0); PLATELET COUNT AUTOMATED 451 10*3/uL (130-400); RED BLOOD COUNT 4.44 10*6/uL (4.10-5.10); RED CELL DISTRI WIDTH 16.5 % (0-14.5); WHITE BLOOD COUNT 7.6 10*3/uL (4.8-10.8)
[2024-02-13 10:14] LABS: BILIRUBIN Negative (Negative); BLOOD Negative (Negative); CLARITY Clear (Clear); COLOR Yellow (Yellow); GLUCOSE Negative (Negative); KETONE Negative (Negative); LEUKO ESTERASE Negative (Negative); NITRITE Negative (Negative); PH 7.5 (4.5-8.0); SPECIFIC GRAVITY <= 1.005 (1.001-1.030); UROBILINOGEN 0.2 E.U./dl (0.0-1.0)
[2024-02-13 10:21] LABS: URINE AMPHETAMINES Negative (1000ng/ml); URINE BARBITURATES Negative (200ng/ml); URINE BENZODIAZEPINES Negative (200ng/ml); URINE CANNABINOIDS (THC) Positive (50ng/ml); URINE COCAINE Negative (300ng/ml); URINE METHADONE Negative (300ng/ml); URINE OPIATES Negative (300ng/ml); URINE PHENCYCLIDINE Negative (25ng/ml)
[2024-02-13 10:26] LABS: BACTERIA TRACE
[2024-02-13 10:34] LABS: CHLORIDE 98 mmol/L (98-107); LIPASE 25 U/L (12-53); POTASSIUM 3.8 mmol/L (3.4-5.1)
[2024-02-13 10:46] LABS: BUN < 5 mg/dl (9-23)
[2024-02-13] MEDS ORDERED: FLUCONAZOLE100 MG PO (11:53)
[2024-02-13] MEDS ORDERED: COLACE 2-IN-11 EACH PO (11:53)
== END 2024-02-13 12:24 | disposition home or self-care (01) ==
LOC: ED 09:27
PROVIDERS: Emergency Medicine
DX: K59.00 Constipation, unspecified (principal); B37.2 Candidiasis of skin and nail; I11.0 Hypertensive heart disease with heart failure; I50.9 Heart failure, unspecified; J44.9 Chronic obstructive pulmonary disease, unspecified; E78.5 Hyperlipidemia, unspecified; F41.9 Anxiety disorder, unspecified; K21.9 Gastro-esophageal reflux disease without esophagitis; F17.200 Nicotine dependence, unspecified, uncomplicated; Z79.899 Other long term (current) drug therapy; Z88.8 Allergy status to other drugs, medicaments and biological substances; Z88.1 Allergy status to other antibiotic agents; Z90.710 Acquired absence of both cervix and uterus; Z98.890 Other specified postprocedural states

== ENCOUNTER 2024-03-12 02:25 | Inpatient (IN) | payer OTHER ==
[~2024-03-12] VITALS: Ht 162.5 cm; Wt 84.9 kg
[~2024-03-12 02:25] MED LIST changes: +COLACE 2-IN-11 EACH PO; -DIAZEPAM5 MG PO; +DIAZEPAM5 MG V; +FLUCONAZOLE100 MG PO; +TEMAZEPAM30 MG PO; +VITAMIN D375 MCG PO
[2024-03-12 02:39] VITALS: BP 141/84
[2024-03-12] MEDS ORDERED: SODIUM CHLORIDE 0.9% 500 ML IV ONE (03:00)
[2024-03-12 03:18] LABS: BASO # 0.1 10*3/uL (0.0-0.1); BASO % 0.4 % (0.0-1.0); EOS # 0.5 10*3/uL (0.0-0.4); EOS % 4.3 % (1.0-4.0); HEMATOCRIT 31.3 % (37.0-47.0); MEAN CELL VOLUME 85.5 fl (81.0-99.0); MEAN CORPUSCULAR HGB 27.6 pg (27.0-31.0); MEAN CORPUSCULAR HGB CONC 32.3 g/dl (33.0-37.0); MEAN PLATELET VOLUME 8.1 fl (9.6-12.3); MONO # 0.8 10*3/uL (0.1-1.0); MONO % 6.9 % (3.0-9.0); NEUT % 79.1 % (47.0-73.0); PLATELET COUNT AUTOMATED 334 10*3/uL (130-400); RED BLOOD COUNT 3.66 10*6/uL (4.10-5.10); RED CELL DISTRI WIDTH 16.2 % (0-14.5); WHITE BLOOD COUNT 11.3 10*3/uL (4.8-10.8)
[2024-03-12] MEDS ORDERED: IOHEXOL 300 MG/ML 100 ML VIAL IV ONE (03:30)
[2024-03-12 03:39] LABS: ALKALINE PHOSPHATASE 120 U/L (46-116); CHLORIDE 99 mmol/L (98-107); POTASSIUM 3.2 mmol/L (3.4-5.1); TOTAL PROTEIN 7.1 gm/dL (6.0-8.0)
[2024-03-12 04:05] LABS: BUN < 5 mg/dl (9-23); SGPT/ALT < 7 U/L (5-49)
[2024-03-12] MEDS ORDERED: IOHEXOL 300 MG/ML 100 ML VIAL ONE (04:29)
[2024-03-12 04:35] LABS: BILIRUBIN Negative (Negative); BLOOD Negative (Negative); CLARITY Clear (Clear); COLOR Yellow (Yellow); GLUCOSE Negative (Negative); KETONE Negative (Negative); LEUKO ESTERASE Trace (Negative); NITRITE Negative (Negative); PH 5.5 (4.5-8.0); SPECIFIC GRAVITY <= 1.005 (1.001-1.030); UROBILINOGEN 0.2 E.U./dl (0.0-1.0)
[2024-03-12] MEDS ORDERED: POTASSIUM CHLORIDE IN WATER 100 ML IV SCH ×2 (07:00→09:00)
[2024-03-12] MEDS ORDERED: SODIUM CHLORIDE 0.9% 1,000 ML IV ONE (07:00)
[2024-03-12] MEDS ORDERED: BISACODYL 10 MG SUPP R PRN (07:50)
[2024-03-12] MEDS ORDERED: Magnesium Hydroxide 30 ML UDC PO PRN (07:50)
[2024-03-12] MEDS ORDERED: ACETAMINOPHEN 325 MG TAB PO PRN (07:50)
[2024-03-12] MEDS ORDERED: Acetaminophen/Hydrocodone 5 MG/325 MG TABLET PO PRN (07:50)
[2024-03-12] MEDS ORDERED: ACETAMINOPHEN 650 MG SUPP R PRN (07:50)
[2024-03-12] MEDS ORDERED: BISACODYL 5 MG TAB PO PRN (07:50)
[2024-03-12] MEDS ORDERED: Ondansetron Hydrochloride 4 MG/2 ML VIAL IV PRN (07:50)
[2024-03-12 07:52] VITALS: BP 159/82
[2024-03-12] MEDS ORDERED: SPIRONOLACTONE 25 MG TAB PO SCH (10:00)
[2024-03-12] MEDS ORDERED: Enoxaparin Sodium 40 MG/0.4 ML SYR SC SCH (10:00)
[2024-03-12 11:14] VITALS: BP 138/80
[2024-03-12 12:00] VITALS: BP 151/74
[2024-03-12] MEDS ORDERED: Ketorolac Tromethamine 15 MG/ML VIAL IV ONE (14:20)
[2024-03-12 16:00] VITALS: BP 129/74
[2024-03-12] MEDS ORDERED: DIAZEPAM 5 MG TAB PO PRN (21:15)
[2024-03-12] MEDS ORDERED: TEMAZEPAM 15 MG CAP PO PRN (21:20)
[2024-03-12] MEDS ORDERED: hydrOXYzine pamoate 25 MG CAP PO PRN (21:20)
[2024-03-12] MEDS ORDERED: BUDESONIDE 0.5 MG AMP NEB SCH (21:30)
[2024-03-12 21:32] VITALS: BP 126/72
[2024-03-12] MEDS ORDERED: Cyclobenzaprine Hydrochlorid 10 MG TAB PO SCH (22:00)
[2024-03-12] MEDS ORDERED: Amitriptyline Hydrochloride 50 MG TAB PO SCH (22:00)
[2024-03-12] MEDS ORDERED: Phenytoin Sodium, Extended 100 MG CAP PO SCH (22:00)
[2024-03-12] MEDS ORDERED: Oxybutynin Chloride 5 MG TAB PO SCH (22:00)
[2024-03-13] VITALS: BP 129/75
[2024-03-13 05:20] LABS: ALKALINE PHOSPHATASE 113 U/L (46-116); CHLORIDE 107 mmol/L (98-107); POTASSIUM 3.7 mmol/L (3.4-5.1)
[2024-03-13 05:25] LABS: BUN < 5 mg/dl (9-23); SGPT/ALT < 7 U/L (5-49)
[2024-03-13] MEDS ORDERED: Pantoprazole Sodium 40 MG TAB PO SCH (06:00)
[2024-03-13 06:18] LABS: BASO % 0.5 % (0.0-1.0); EOS # 0.8 10*3/uL (0.0-0.4); EOS % 12.5 % (1.0-4.0); HEMATOCRIT 31.3 % (37.0-47.0); MEAN CELL VOLUME 84.6 fl (81.0-99.0); MEAN CORPUSCULAR HGB 27.8 pg (27.0-31.0); MEAN CORPUSCULAR HGB CONC 32.9 g/dl (33.0-37.0); MEAN PLATELET VOLUME 8.2 fl (9.6-12.3); MONO # 0.7 10*3/uL (0.1-1.0); MONO % 10.9 % (3.0-9.0); NEUT # 3.1 10*3/uL (2.3-7.9); NEUT % 48.9 % (47.0-73.0); PLATELET COUNT AUTOMATED 367 10*3/uL (130-400); RED CELL DISTRI WIDTH 16.1 % (0-14.5); WHITE BLOOD COUNT 6.3 10*3/uL (4.8-10.8)
[2024-03-13 08:00] VITALS: BP 135/68
[2024-03-13] MEDS ORDERED: FLUTICASONE PROPIONATE 44 MCG INHALER INH SCH (10:00)
[2024-03-13] MEDS ORDERED: FOLIC ACID 1 MG TAB PO SCH (10:00)
[2024-03-13 12:00] VITALS: BP 118/65
== END 2024-03-13 16:50 | disposition home health service (06) | DRG 394 ==
LOC: ED 02:25 → EDHOLD 07:08 → 4E 09:38
PROVIDERS: Internal Medicine; Student in an Organized Health Care Education/Training Program; ADMIT Internal Medicine; ATTEND Internal Medicine
DX: K94.03 Colostomy malfunction (principal); E87.1 Hypo-osmolality and hyponatremia; I50.9 Heart failure, unspecified; J44.9 Chronic obstructive pulmonary disease, unspecified; K57.30 Diverticulosis of large intestine without perforation or abscess without bleeding; I11.0 Hypertensive heart disease with heart failure; K21.9 Gastro-esophageal reflux disease without esophagitis; E78.5 Hyperlipidemia, unspecified; K58.9 Irritable bowel syndrome, unspecified; G40.909 Epilepsy, unspecified, not intractable, without status epilepticus; F17.210 Nicotine dependence, cigarettes, uncomplicated; D72.828 Other elevated white blood cell count; D64.9 Anemia, unspecified; E87.6 Hypokalemia; K59.00 Constipation, unspecified; Z88.1 Allergy status to other antibiotic agents; Z88.8 Allergy status to other drugs, medicaments and biological substances; Z91.09 Other allergy status, other than to drugs and biological substances; Z82.5 Family history of asthma and other chronic lower respiratory diseases; Z79.899 Other long term (current) drug therapy; Z79.01 Long term (current) use of anticoagulants; Z79.2 Long term (current) use of antibiotics; Z90.710 Acquired absence of both cervix and uterus; Z80.8 Family history of malignant neoplasm of other organs or systems; Z71.6 Tobacco abuse counseling; Z82.49 Family history of ischemic heart disease and other diseases of the circulatory system; Z83.3 Family history of diabetes mellitus

== ENCOUNTER 2024-04-02 10:09 | Emergency (ER) | payer OTHER ==
[~2024-04-02] VITALS: Ht 162.5 cm; Wt 81.6 kg
[2024-04-02 13:31] LABS: BASO # 0.1 10*3/uL (0.0-0.1); BASO % 0.6 % (0.0-1.0); EOS % 12.7 % (1.0-4.0); HEMATOCRIT 35.1 % (37.0-47.0); MEAN CELL VOLUME 83.6 fl (81.0-99.0); MEAN CORPUSCULAR HGB 27.4 pg (27.0-31.0); MEAN CORPUSCULAR HGB CONC 32.8 g/dl (33.0-37.0); MONO # 0.7 10*3/uL (0.1-1.0); NEUT # 4.8 10*3/uL (2.3-7.9); NEUT % 58.5 % (47.0-73.0); PLATELET COUNT AUTOMATED 400 10*3/uL (130-400); RED CELL DISTRI WIDTH 14.5 % (0-14.5); WHITE BLOOD COUNT 8.1 10*3/uL (4.8-10.8)
[2024-04-02 13:54] LABS: BUN 6 mg/dl (9-23); CHLORIDE 102 mmol/L (98-107); POTASSIUM 3.9 mmol/L (3.4-5.1)
[2024-04-02] MEDS ORDERED: CLEOCIN HCL300 MG PO (15:20)
[2024-04-02] MEDS ORDERED: CLINDAMYCIN HCL 300 MG CAPSULE PO ONE (15:20)
== END 2024-04-02 15:35 | disposition home or self-care (01) ==
LOC: ED 10:09
PROVIDERS: Nurse Practitioner Family
DX: L03.311 Cellulitis of abdominal wall (principal); L98.499 Non-pressure chronic ulcer of skin of other sites with unspecified severity; R11.0 Nausea; I10 Essential (primary) hypertension; J44.9 Chronic obstructive pulmonary disease, unspecified; F41.9 Anxiety disorder, unspecified; K21.9 Gastro-esophageal reflux disease without esophagitis; F17.200 Nicotine dependence, unspecified, uncomplicated; Z88.1 Allergy status to other antibiotic agents; Z88.8 Allergy status to other drugs, medicaments and biological substances; Z90.710 Acquired absence of both cervix and uterus; Z98.890 Other specified postprocedural states

== ENCOUNTER 2024-04-17 13:34 | Emergency (ER) | payer OTHER ==
[~2024-04-17] VITALS: Ht 162.5 cm; Wt 87.1 kg
[~2024-04-17 13:34] MED LIST changes: +CLEOCIN HCL300 MG PO
[2024-04-17] MEDS ORDERED: Acetaminophen/Oxycodone 5 MG/325 MG TABLET PO ONE (14:00)
[2024-04-17] MEDS ORDERED: MORPHINE Sulfate 2 MG/ML SYR IV ONE (15:55)
[2024-04-17] MEDS ORDERED: Ondansetron Hydrochloride 4 MG/2 ML VIAL IV ONE (15:55)
[2024-04-17] MEDS ORDERED: PERCOCET 5-3251 EACH PO (16:36)
== END 2024-04-17 17:33 | disposition home or self-care (01) ==
LOC: ED 13:34
DX: S32.491A Other specified fracture of right acetabulum, initial encounter for closed fracture (principal); I10 Essential (primary) hypertension; J44.9 Chronic obstructive pulmonary disease, unspecified; F41.9 Anxiety disorder, unspecified; K21.9 Gastro-esophageal reflux disease without esophagitis; E78.5 Hyperlipidemia, unspecified; R51.9 Headache, unspecified; F17.200 Nicotine dependence, unspecified, uncomplicated; Z88.8 Allergy status to other drugs, medicaments and biological substances; Z88.1 Allergy status to other antibiotic agents; Z90.710 Acquired absence of both cervix and uterus; Z98.890 Other specified postprocedural states; W01.0XXA Fall on same level from slipping, tripping and stumbling without subsequent striking against object, initial encounter; Y93.89 Activity, other specified; Y92.89 Other specified places as the place of occurrence of the external cause; Y99.8 Other external cause status

== ENCOUNTER 2024-05-02 14:04 | Emergency (ER) | payer OTHER ==
[~2024-05-02] VITALS: Ht 162.5 cm; Wt 82.6 kg
[2024-05-02] MEDS ORDERED: CLINDAMYCIN HC300 MG PO (14:29)
[2024-05-02] MEDS ORDERED: Acetaminophen/Oxycodone 5 MG/325 MG TABLET PO ONE (14:35)
[2024-05-02] MEDS ORDERED: CLINDAMYCIN HCL 300 MG CAPSULE PO ONE (14:35)
== END 2024-05-02 14:39 | disposition home or self-care (01) ==
LOC: ED 14:04
DX: L03.113 Cellulitis of right upper limb (principal); R21 Rash and other nonspecific skin eruption; G89.29 Other chronic pain; M25.551 Pain in right hip; E87.6 Hypokalemia; E87.1 Hypo-osmolality and hyponatremia; D64.9 Anemia, unspecified; I11.0 Hypertensive heart disease with heart failure; I50.9 Heart failure, unspecified; J44.9 Chronic obstructive pulmonary disease, unspecified; K21.9 Gastro-esophageal reflux disease without esophagitis; E78.5 Hyperlipidemia, unspecified; F41.9 Anxiety disorder, unspecified; F17.210 Nicotine dependence, cigarettes, uncomplicated; Z88.8 Allergy status to other drugs, medicaments and biological substances; Z98.890 Other specified postprocedural states; Z90.710 Acquired absence of both cervix and uterus

== ENCOUNTER → 2024-06-02 | Emergency (ER) | payer OTHER ==
[~2024-06-02] VITALS: Ht 162.5 cm; Wt 86.2 kg
[~2024-06-02] MED LIST changes: +CEPHALEXIN250 MG PO; +POTASSIUM CHLORIDE 20 MEQ TAB PO ONE
[2024-06-02 17:21] LABS: BASO # 0.1 10*3/uL (0.0-0.1); BASO % 0.6 % (0.0-1.0); EOS # 0.7 10*3/uL (0.0-0.4); HEMATOCRIT 37.9 % (37.0-47.0); MEAN CELL VOLUME 85.6 fl (81.0-99.0); MEAN CORPUSCULAR HGB CONC 32.7 g/dl (33.0-37.0); MEAN PLATELET VOLUME 8.1 fl (9.6-12.3); MONO # 0.9 10*3/uL (0.1-1.0); MONO % 7.8 % (3.0-9.0); NEUT # 8.1 10*3/uL (2.3-7.9); PLATELET COUNT AUTOMATED 505 10*3/uL (130-400); RED BLOOD COUNT 4.43 10*6/uL (4.10-5.10); RED CELL DISTRI WIDTH 15.7 % (0-14.5); WHITE BLOOD COUNT 11.6 10*3/uL (4.8-10.8)
== END ==
LOC: ED 16:24
PROVIDERS: Emergency Medicine
DX: L03.311 Cellulitis of abdominal wall (principal); L23.1 Allergic contact dermatitis due to adhesives; E16.2 Hypoglycemia, unspecified; F17.200 Nicotine dependence, unspecified, uncomplicated; Z88.1 Allergy status to other antibiotic agents; Z79.899 Other long term (current) drug therapy; Z98.890 Other specified postprocedural states; Z90.710 Acquired absence of both cervix and uterus